=== PATIENT | male | born 1980 | race Two or more races ===

== ENCOUNTER 2023-10-06 20:03 | Inpatient (IN) | payer MEDICARE, MEDICAID ==
[~2023-10-06] VITALS: Ht 175.3 cm; Wt 91.6 kg
[2023-10-06 22:09] LABS: BASOPHILS % (AUTO) 0.2 % (0.0-2.0); EOSINOPHILS % (AUTO) 0.1 % (1.0-6.0); HEMATOCRIT 43.9 % (41-53); HEMOGLOBIN 14.6 g/dL (13.5-17.5); MEAN CORPUSCULAR HEMOGLOBIN 29.2 pg (26.0-34.0); MEAN CORPUSCULAR HGB CONC 33.3 G/dL (31.0-37.0); MEAN CORPUSCULAR VOLUME 88 fL (80-100); MONOCYTES % (AUTO) 5.9 % (2.0-9.0); NEUTROPHILS # (AUTO) 14.5 K/uL (1.8-7.7); PLATELET COUNT (AUTO) 199 K/uL (150-450); RED CELL DISTRIBUTION WIDTH 13.8 % (11.5-14.5); WHITE BLOOD COUNT (AUTO) 16.5 K/uL (4.5-11.0)
[2023-10-06 22:15] LABS: NEUTROPHILS % (AUTO) 87.8 % (40.0-70.0)
[2023-10-06 22:20] LABS: ANION GAP 10 mmol/L (8-16); CALCIUM, TOTAL 8.8 mg/dL (8.8-10.5); CARBON DIOXIDE 28 mmol/L (22-29); CHLORIDE 104 mmol/L (98-107); CREATININE 0.89 mg/dL (0.60-1.30); GLOMERULAR FILTR. RATE CALC > 60 mL/min (>60); GLUCOSE,RANDOM 103 mg/dL (70-110); POTASSIUM 3.5 mmol/L (3.5-5.1); SODIUM SERUM 142 mmol/L (136-145); UREA NITROGEN, BLOOD 16 mg/dL (7-18)
[2023-10-06 22:22] LABS: ALCOHOL, BLOOD (SERUM) < 3 mg/dL (0-10)
[2023-10-06 22:27] LABS: ALANINE AMINOTRANSFERASE 47 U/L (12-78); ALBUMIN 4.3 g/dL (3.4-5.0); ALKALINE PHOSPHATASE 53 U/L (46-116); ASPARTATE AMINOTRANSFERASE 24 U/L (15-37); BILIRUBIN,TOTAL 1.3 mg/dL (0.1-1.0); TOTAL PROTEIN, SERUM 7.9 g/dL (6.4-8.2)
[2023-10-06 22:28] LABS: PH,URINE DRUG SCREEN 5.5 (5.0-8.0)
[2023-10-06 22:34] LABS: ALCOHOL, URINE DRUG SCREEN NEGATIVE (NEGATIVE); AMPHET/METH SCREEN,URINE NEGATIVE (NEGATIVE); BARBITURATE SCREEN, URINE NEGATIVE (NEGATIVE); BENZODIAZEPINES SCREEN,URINE NEGATIVE (NEGATIVE); CANNABINOID SCREEN,URINE NEGATIVE (NEGATIVE); COCAINE SCREEN,URINE NEGATIVE (NEGATIVE); METHADONE SCREEN, URINE NEGATIVE (NEGATIVE); OPIATE SCREEN,URINE NEGATIVE (NEGATIVE); PHENCYCLIDINE SCREEN,URINE NEGATIVE (NEGATIVE)
[2023-10-07] MEDS ORDERED: LORazepam 2 MG TABLET PO PRN (02:15)
[2023-10-07] MEDS ORDERED: ZOLPIDEM TARTRATE 10 MG TABLET PO PRN (02:15)
[2023-10-07] MEDS ORDERED: HALOPERIDOL 5 MG TABLET PO PRN (02:15)
[2023-10-07 02:50] LABS: COVID AG,FIA SOURCE NASAL SWAB
[2023-10-07 02:53] LABS: SARS-COV2 (COVID) ANTIGEN,FIA Negative (Negative)
[2023-10-07 07:08] VITALS: BP 147/81; PULSE 89; RESP 18; TEMP 98.1; O2SAT 97
[2023-10-07 08:32] VITALS: BP 146/90; PULSE 100; RESP 19; TEMP 98.4; O2SAT 96
[2023-10-07] MEDS ORDERED: MAG HYDROX/ALUMINUM HYD/SIMETH ES 30 ML SUSPENSION UDCUP PO PRN (10:00)
[2023-10-07] MEDS ORDERED: CloNIDine HCL 0.1 MG TABLET PO PRN (10:00)
[2023-10-07] MEDS ORDERED: ONDANSETRON HCL 4 MG TABLET PO PRN (10:00)
[2023-10-07] MEDS ORDERED: MAGNESIUM HYDROXIDE SUSPENSION 30 ML UDCUP PO PRN (10:00)
[2023-10-07] MEDS ORDERED: ACETAMINOPHEN 325 MG TABLET PO PRN (10:00)
[2023-10-07] MEDS ORDERED: GuaiFENesin/D-METHORPHAN [SUGAR-FREE] 200-20MG/10 ML SYRUP UDCUP PO PRN (10:00)
[2023-10-07] MEDS ORDERED: NICOTINE 14 MG/24 HOUR PATCH TD PRN (10:00)
[2023-10-07] MEDS ORDERED: DOCUSATE SODIUM 100 MG CAPSULE PO PRN (10:00)
[2023-10-07] MEDS ORDERED: PETROLATUM,WHITE 28 GM JELLY TP PRN (10:00)
[2023-10-07] MEDS ORDERED: IBUPROFEN 400 MG TABLET PO PRN (10:00)
[2023-10-07] MEDS ORDERED: ALBUTEROL SULFATE HFA 90 MCG/PUFF 8 GM INHALER IH PRN (10:00)
[2023-10-07] MEDS ORDERED: LOPERAMIDE HCL 2 MG CAPSULE PO PRN (10:00)
[2023-10-07 20:05] VITALS: BP 140/96; PULSE 94; RESP 20; TEMP 98.1; O2SAT 96
[2023-10-07] MEDS: RisperiDONE 1 MG TABLET PO SCH (20:50)
[2023-10-08 08:36] LABS: HEMOGLOBIN A1C 5.2 % (3.8-5.6)
[2023-10-08 08:51] LABS: CHOL/HDL RATIO 3.3 (4.2-7.3); THYROID STIMULATING HORMONE 3.15 uIU/mL (0.36-3.74)
[2023-10-08 09:42] VITALS: BP 139/67; PULSE 103; RESP 18; TEMP 98.2; O2SAT 92
[2023-10-08 21:16] VITALS: BP 130/84; PULSE 83; RESP 19; TEMP 97.5; O2SAT 93
[2023-10-09 08:00] LABS: BASOPHILS % (AUTO) 0.6 % (0.0-2.0); EOSINOPHILS % (AUTO) 1.5 % (1.0-6.0); HEMATOCRIT 43.5 % (41-53); LYMPHOCYTES # (AUTO) 1.6 K/uL (1.0-4.8); LYMPHOCYTES % (AUTO) 22.2 % (22.0-44.0); MEAN CORPUSCULAR HGB CONC 34.5 G/dL (31.0-37.0); MEAN CORPUSCULAR VOLUME 87 fL (80-100); MONOCYTES # (AUTO) 0.7 K/uL (0.1-1.0); NEUTROPHILS # (AUTO) 4.9 K/uL (1.8-7.7); NEUTROPHILS % (AUTO) 66.7 % (40.0-70.0); PLATELET COUNT (AUTO) 191 K/uL (150-450); RED CELL DISTRIBUTION WIDTH 13.4 % (11.5-14.5); WHITE BLOOD COUNT (AUTO) 7.4 K/uL (4.5-11.0)
[2023-10-09 08:29] VITALS: BP 127/77; PULSE 77; RESP 18; TEMP 97.8; O2SAT 97
[2023-10-09 20:33] VITALS: BP 116/76; PULSE 75; RESP 18; TEMP 98.6; O2SAT 94
[2023-10-10 08:25] VITALS: BP 142/77; PULSE 93; RESP 18; TEMP 97.9; O2SAT 98
[2023-10-10 20:27] VITALS: BP 148/94; PULSE 95; RESP 18; TEMP 98.2; O2SAT 96
[2023-10-11 08:26] VITALS: BP 143/95; PULSE 109; RESP 19; TEMP 98; O2SAT 96
[2023-10-11 22:48] VITALS: BP 122/84; PULSE 90; RESP 18; TEMP 98.1; O2SAT 95
[2023-10-12 09:26] VITALS: BP 137/76; PULSE 98; RESP 17; TEMP 97.7; O2SAT 97
[2023-10-12 20:06] VITALS: BP 125/70; PULSE 85; RESP 18; TEMP 97.2; O2SAT 97
[2023-10-13 08:00] VITALS: BP 121/69; PULSE 89; RESP 18; TEMP 97.8; O2SAT 97
[2023-10-13 08:24] LABS: APPEARANCE,URINE CLEAR (CLEAR); BILIRUBIN,URINE NEGATIVE (NEGATIVE); COLOR,URINE LIGHT YELLOW (YELLOW); GLUCOSE, URINE (UA) NEGATIVE (NEGATIVE); KETONES,URINE NEGATIVE (NEGATIVE); LEUKOCYTE ESTERASE ,URINE NEGATIVE (NEGATIVE); NITRATE,URINE NEGATIVE (NEGATIVE); OCCULT BLOOD,URINE NEGATIVE (NEGATIVE); PROTEIN,URINE NEGATIVE (NEGATIVE); SPECIFIC GRAVITIY, URINE 1.006 (1.003-1.030); UROBILINOGEN,URINE <=1.0 mg/dL (<=1.0)
[2023-10-13 08:37] LABS: AMPHET/METH SCREEN,URINE NEGATIVE (NEGATIVE); BARBITURATE SCREEN, URINE NEGATIVE (NEGATIVE); BENZODIAZEPINES SCREEN,URINE NEGATIVE (NEGATIVE); CANNABINOID SCREEN,URINE NEGATIVE (NEGATIVE); COCAINE SCREEN,URINE NEGATIVE (NEGATIVE); METHADONE SCREEN, URINE NEGATIVE (NEGATIVE); OPIATE SCREEN,URINE NEGATIVE (NEGATIVE); PHENCYCLIDINE SCREEN,URINE NEGATIVE (NEGATIVE)
[2023-10-13 08:40] LABS: ALCOHOL, URINE DRUG SCREEN NEGATIVE (NEGATIVE)
[2023-10-13 21:04] VITALS: BP 122/80; PULSE 89; RESP 18; TEMP 97.5; O2SAT 96
[2023-10-14 08:06] VITALS: BP 138/78; PULSE 83; RESP 16; TEMP 98.2; O2SAT 98
[2023-10-14] MEDS: MULTIVITAMINS WITH MINERALS, THERAPEUTIC TABLET PO SCH (08:27)
[2023-10-14 23:45] VITALS: BP 132/82; PULSE 78; RESP 18; TEMP 98; O2SAT 98
[2023-10-15 08:08] VITALS: BP 115/79; PULSE 86; RESP 16; TEMP 98.2; O2SAT 96
[2023-10-15 23:25] VITALS: BP 124/82; PULSE 78; RESP 18; TEMP 97.8; O2SAT 98
[2023-10-16 09:21] VITALS: BP 119/73; PULSE 100; RESP 18; TEMP 98.1; O2SAT 96
[2023-10-16 21:13] VITALS: BP 143/93; PULSE 84; RESP 19; TEMP 98.2; O2SAT 97
[2023-10-17 08:34] VITALS: BP 113/73; PULSE 90; RESP 17; TEMP 98; O2SAT 98
[2023-10-17 20:33] VITALS: BP 139/80; PULSE 78; RESP 18; TEMP 98; O2SAT 98
[2023-10-18 08:59] VITALS: BP 124/86; PULSE 94; RESP 18; TEMP 98; O2SAT 98
[2023-10-18 21:10] VITALS: BP 118/77; PULSE 66; RESP 18; TEMP 98.3; O2SAT 96
[2023-10-19 19:30] VITALS: RESP 16
[2023-10-19 20:08] VITALS: BP 108/66; PULSE 79; RESP 16; TEMP 97.9; O2SAT 99
[2023-10-20 08:56] VITALS: BP 127/85; PULSE 73; RESP 17; TEMP 98; O2SAT 98
[2023-10-20 20:03] VITALS: BP 119/76; PULSE 88; RESP 18; TEMP 97.5; O2SAT 97
[2023-10-21 08:04] VITALS: BP 138/90; PULSE 81; RESP 18; TEMP 97.7; O2SAT 98
[2023-10-21 20:33] VITALS: RESP 18
[2023-10-22 08:16] VITALS: BP 125/76; PULSE 97; RESP 17; TEMP 97.9; O2SAT 98
[2023-10-22 20:04] VITALS: BP 107/63; PULSE 80; RESP 18; TEMP 98.2; O2SAT 97
[2023-10-23 08:03] VITALS: BP 130/89; PULSE 100; RESP 17; TEMP 97.7; O2SAT 97
[2023-10-23] MEDS ORDERED: RISP1TAB48 PO (09:14)
== END 2023-10-23 16:26 | disposition home or self-care (01) | DRG 885 ==
LOC: EMS 20:04 → B3A 10-07 02:32 → B2X 10-07 06:10
PROVIDERS: ADMIT Psychiatry & Neurology Psychiatry; ATTEND Psychiatry & Neurology Psychiatry
PROC: GZ52ZZZ Individual Psychotherapy, Cognitive (ICD-10-PCS; principal; 2023-10-07)
DX: F25.0 Schizoaffective disorder, bipolar type (principal); R17 Unspecified jaundice; R45.850 Homicidal ideations; D72.829 Elevated white blood cell count, unspecified; Z20.822 Contact with and (suspected) exposure to COVID-19; G47.00 Insomnia, unspecified; F41.9 Anxiety disorder, unspecified; R03.0 Elevated blood-pressure reading, without diagnosis of hypertension; Z79.899 Other long term (current) drug therapy; Z91.148 Patient's other noncompliance with medication regimen for other reason
CPT/HCPCS: 80053; 80061; 80307; 81003; 83036; 84443; 85025; 99285; G0480